=== PATIENT | male | born 1955 | race African-American/Black ===

== ENCOUNTER 2024-06-21 07:22 | Inpatient (IN) | payer MEDICARE, BC ==
[~2024-06-21] VITALS: Ht 175.3 cm; Wt 99.3 kg
[2024-06-21] MEDS: IV D5/0.45 NACL 1,000 ML IV ONE (07:49)
[2024-06-21 08:08] LABS: BASOPHILS % (AUTO) 0.3 % (0.0-2.0); EOSINOPHILS % (AUTO) 0.1 % (0.0-6.0); HEMATOCRIT 38 % (39-51); HEMOGLOBIN 12.3 g/dL (13.5-17.5); LYMPHOCYTES # (AUTO) 1.3 K/uL (0.8-4.8); LYMPHOCYTES % (AUTO) 15.2 % (20.0-44.0); MEAN CORPUSCULAR HEMOGLOBIN 27 PG (26.0-33.0); MEAN CORPUSCULAR HGB CONC 32 g/dl (31.0-36.0); MEAN CORPUSCULAR VOLUME 82 fL (80-96); MONOCYTES # (AUTO) 0.3 K/uL (0.1-1.30); NEUTROPHILS % (AUTO) 81.4 % (43.0-81.0); PLATELET COUNT (AUTO) 182 K/uL (150-450); RED BLOOD CELL COUNT(AUTO) 4.65 MIL/uL (4.5-6.0); RED CELL DISTRIBUTION WIDTH 15.5 % (11.5-15.0); WHITE BLOOD COUNT (AUTO) 8.6 K/uL (4.3-11.0)
[2024-06-21 08:13] LABS: CALCIUM, SERUM 9.1 mg/dL (8.5-10.1); CARBON DIOXIDE 20 mmol/L (21-32); CHLORIDE 105 mmol/L (98-107); CREATININE 1.6 mg/dL (0.6-1.3); GLUCOSE 105 mg/dL (74-106); POTASSIUM 4.5 mmol/L (3.5-5.1); SODIUM SERUM 143 mmol/L (136-145); UREA NITROGEN, BLOOD 27 mg/dL (7-18)
[2024-06-21 08:18] LABS: ALANINE AMINOTRANSFERASE 9 U/L (12-78); ALBUMIN 3.6 g/dL (3.4-5.0); ALCOHOL, BLOOD 140 mg/dL (0-10); ALKALINE PHOSPHATASE 78 U/L (46-116); ASPARTATE AMINOTRANSFERASE 22 U/L (15-37); BILIRUBIN,DIRECT 0.1 mg/dL (0.0-0.2); BILIRUBIN,TOTAL 0.5 mg/dL (0.2-1.0); TOTAL PROTEIN, SERUM 7.4 g/dL (6.4-8.2)
[2024-06-21 08:21] LABS: SALICYLATE 2.1 mg/dL (2.8-20.0)
[2024-06-21 08:22] LABS: ACETAMINOPHEN <10 ug/ml (10-30)
[2024-06-21 09:07] LABS: APPEARANCE,URINE CLEAR (CLEAR); BILIRUBIN,URINE NEGATIVE (NEGATIVE); BLOOD, URINE 1+ Ery/uL (NEGATIVE); COLOR,URINE YELLOW (YELLOW); KETONES,URINE NEGATIVE (NEGATIVE); LEUKOCYTE ESTERASE ,URINE NEGATIVE (NEGATIVE); NITRITE, URINE NEGATIVE (NEGATIVE); PH,URINE 5.5 (5.0-8.0); PROTEIN,URINE 2+ mg/dl (NEGATIVE); UGLUCOSE 2+ mg/dL (NEGATIVE); UROBILINOGEN,URINE 0.2 EU/dL (0.2)
[2024-06-21 09:13] LABS: AMPHETAMINE, URINE NEGATIVE (NEGATIVE); BARBITURATE, URINE NEGATIVE (NEGATIVE); BENZODIAZEPINE, URINE NEGATIVE (NEGATIVE); CANNABINOID, URINE NEGATIVE (NEGATIVE); OPIATE, URINE NEGATIVE (NEGATIVE); PHENCYCLIDINE SCREEN,URINE NEGATIVE (NEGATIVE)
[2024-06-21 09:17] LABS: COCCAINE, URINE POSITIVE (NEGATIVE)
[2024-06-21 09:18] LABS: ADD URINE CULTURE NO; BACTERIA,URINE Rare /HPF (None Seen); SQUAMOUS EPITHELIAL CELL,UR Rare /HPF (None Seen); WBC,URINE 0-2 /HPF (0-3)
[2024-06-21] MEDS ORDERED: MAG HYDROX/AL HYDROX/SIMETH 30 ML UDC PO PRN (11:30)
[2024-06-21] MEDS ORDERED: ACETAMINOPHEN 325 MG TABLET PO PRN (11:30)
[2024-06-21] MEDS ORDERED: DEXTROSE 50%-WATER 50 ML DISP.SYRIN IV PRN (11:30)
[2024-06-21] MEDS ORDERED: ZOLPIDEM TARTRATE 5 MG TABLET PO PRN (11:30)
[2024-06-21] MEDS ORDERED: ONDANSETRON HCL/PF 4 MG/2 ML VIAL IVP PRN (11:30)
[2024-06-21] MEDS ORDERED: MAGNESIUM HYDROXIDE 30 ML UDC PO PRN (11:30)
[2024-06-21] MEDS ORDERED: Z GUARD REMEDY 4 OZ OINT TP PRN (11:30)
[2024-06-21] MEDS ORDERED: INSU300I3 SQ (11:53)
[2024-06-21] MEDS ORDERED: EZET10TA32 PO (11:53)
[2024-06-21] MEDS ORDERED: CARV6.252 PO (11:53)
[2024-06-21] MEDS ORDERED: METF-442 PO (11:53)
[2024-06-21] MEDS ORDERED: SPIR25TA6 PO (11:53)
[2024-06-21] MEDS ORDERED: REPA2TAB10 PO (11:53)
[2024-06-21] MEDS ORDERED: LOSA50TA39 PO (11:53)
[2024-06-21] MEDS ORDERED: ASPI-1420 PO (11:53)
[2024-06-21] MEDS ORDERED: SEMA14TA PO (11:53)
[2024-06-21] MEDS ORDERED: EMPA25TA PO (11:53)
[2024-06-21] MEDS ORDERED: ROSU5TAB13 PO (11:53)
[2024-06-21] MEDS ORDERED: FURO20TA4 PO (11:53)
[2024-06-21 12:00] VITALS: BP 146/72; TEMP 97.7; O2SAT 99
[2024-06-21] MEDS: ENOXAPARIN SODIUM 40 MG/0.4 ML DISP.SYRIN SQ SCH (12:16)
[2024-06-21] MEDS: BLOOD SUGAR DIAGNOSTIC 1 EACH STRIP IN SCH (12:32)
[2024-06-21] MEDS: INSULIN REGULAR, HUMAN 100 UNIT/ML 3 ML VIAL SQ PRN (12:33)
[2024-06-21] MEDS: IV D5/0.45 NACL 1,000 ML IV PRN (13:01)
[2024-06-21 16:00] VITALS: BP 139/84; TEMP 98.6; O2SAT 99
[2024-06-21] MEDS ORDERED: REPAGLINIDE 2 MG TABLET PO SCH (17:00)
[2024-06-21] MEDS: CARVEDILOL 6.25 MG TABLET PO SCH (17:19)
[2024-06-21 20:00] VITALS: BP 132/74; TEMP 98.4; O2SAT 100
[2024-06-21] MEDS: INSULIN GLARGINE, 100 UNIT/ML CARTRIDGE SQ SCH (21:00)
[2024-06-21] MEDS: ATORVASTATIN 10 MG TABLET PO SCH (22:25)
[2024-06-22] VITALS: BP 130/78; TEMP 98.4; O2SAT 99
[2024-06-22 04:00] VITALS: BP 142/76; TEMP 98.2; O2SAT 98
[2024-06-22 07:37] LABS: BASOPHILS % (AUTO) 0.3 % (0.0-2.0); EOSINOPHILS % (AUTO) 0.9 % (0.0-6.0); HEMATOCRIT 36 % (39-51); LYMPHOCYTES # (AUTO) 1.7 K/uL (0.8-4.8); LYMPHOCYTES % (AUTO) 35.5 % (20.0-44.0); MEAN CORPUSCULAR HEMOGLOBIN 27 PG (26.0-33.0); MEAN CORPUSCULAR HGB CONC 33 g/dl (31.0-36.0); MEAN CORPUSCULAR VOLUME 80 fL (80-96); MONOCYTES # (AUTO) 0.7 K/uL (0.1-1.30); MONOCYTES % (AUTO) 14.5 % (2.0-12.0); NEUTROPHILS # (AUTO) 2.4 K/uL (1.8-8.9); NEUTROPHILS % (AUTO) 48.8 % (43.0-81.0); PLATELET COUNT (AUTO) 187 K/uL (150-450); RED BLOOD CELL COUNT(AUTO) 4.51 MIL/uL (4.5-6.0); RED CELL DISTRIBUTION WIDTH 15.5 % (11.5-15.0); WHITE BLOOD COUNT (AUTO) 4.9 K/uL (4.3-11.0)
[2024-06-22 07:44] LABS: CREATININE 1.5 mg/dL (0.6-1.3); MAGNESIUM 2.5 mg/dL (1.8-2.4); PHOSPHORUS 3.7 mg/dL (2.5-4.9)
[2024-06-22 08:00] VITALS: BP 151/91; TEMP 98.2; O2SAT 99
[2024-06-22 08:14] LABS: THYROID STIMULATING HORMONE 0.76 uIU/mL (0.358-3.74)
[2024-06-22] MEDS: ASPIRIN EC 81 MG TABLET.DR PO SCH (08:33)
[2024-06-22] MEDS: EZETIMIBE 10 MG TABLET PO SCH (08:33)
[2024-06-22] MEDS: FUROSEMIDE 20 MG TABLET PO SCH (08:34)
[2024-06-22] MEDS: LOSARTAN POTASSIUM 50 MG TABLET PO SCH (08:34)
[2024-06-22] MEDS: SPIRONOLACTONE 25 MG TABLET PO SCH (08:34)
[2024-06-22] MEDS: PANTOPRAZOLE 40 MG TABLET.DR PO SCH (08:39)
[2024-06-22] MEDS: EMPAGLIFLOZIN 25 MG TABLET PO SCH (08:39)
[2024-06-22 12:00] VITALS: BP 150/85; TEMP 98.4; O2SAT 99
[2024-06-23 16:29] LABS: CREATININE, URINE 41.4 MG/DL (30.0-125.0); URINE TOTAL PROTEIN 10.5 mg/dL (0-11.9)
== END 2024-06-22 14:11 | disposition home or self-care (01) | DRG 639 ==
LOC: ER 07:38 → ICUOV 09:38 → TELE-TD 11:12 → TELE1 06-22 11:27
DX: E11.649 Type 2 diabetes mellitus with hypoglycemia without coma (principal); N17.9 Acute kidney failure, unspecified; D64.9 Anemia, unspecified; E83.41 Hypermagnesemia; F14.10 Cocaine abuse, uncomplicated; M89.8X9 Other specified disorders of bone, unspecified site; Z79.4 Long term (current) use of insulin; Z95.810 Presence of automatic (implantable) cardiac defibrillator; Z79.84 Long term (current) use of oral hypoglycemic drugs; F10.129 Alcohol abuse with intoxication, unspecified; Y90.6 Blood alcohol level of 120-199 mg/100 ml; I50.9 Heart failure, unspecified; Z71.41 Alcohol abuse counseling and surveillance of alcoholic; Z91.199 Patient's noncompliance with other medical treatment and regimen due to unspecified reason; I11.0 Hypertensive heart disease with heart failure
CPT/HCPCS: 36415; 80048-TC; 80061-TC; 80076-TC; 81001; 82570-TC; 82962-TC; 83735-TC; 84100-TC; 84300-TC; 84443-TC; 85025-TC; A4223; G0378; G0480; J1650; J1815; J3490